=== PATIENT | female | born 1985 | race Caucasian/White ===

== ENCOUNTER → 2019-06-09 | Day surgery (SDC) | payer BC, MEDICARE ==
[~2019-06-09] MED LIST: ACETAMINOPHEN 325 MG TABLET PO PRN; ALBU2.5V8; ATROPINE 0.5 MG/5 ML DISP.SYRIN. IV PRN; BUPR300T92 PO; CLON0.5T4 PO; CYCL5TAB PO; FLUO10CA13 PO; IV RINGERS SOLUTION,LACTATED 1,000 ML IV SCH; LEVO100T5 PO; MIDAZOLAM HCL PF 2 MG/2 ML VIAL. IV PRN; ONDA4TAB12 PO; ONDANSETRON PF 4 MG/2 ML VIAL. IV PRN; OXCA150T3 PO; OXCA300T3 PO; PHENOL ORAL SPRAY 177ML BOTTLE. MM PRN; PRAZ2CAP2 PO; PREDISONE; PROPOFOL 40 ML IV ONE; diphenhydrAMINE 50 MG/ML VIAL IV PRN
[2019-06-09 08:47] VITALS: BP 125/75
--- NOTE | 2019-06-11 17:06 | PATHOLOGY ---
[facility] Accession Number: [id number] . 01 Material submitted: . PART A: small bowel - SMALL BOWEL BIOPSY PART B: stomach - GASTRIC BIOPSY PART C: colon - RANDOM COLON BIOPSY . 01 Clinical history: . GERD/IBS. . 02 Diagnosis: A. Small bowel biopsy: - No significant pathologic abnormalities. . B. Gastric biopsy: - Mild chronic gastritis with single poorly formed mucosal granuloma. . C. Colonic mucosa, random colon biopsy: - Small focus of active colitis with few granulomas of deep mucosa and submucosa. See comment. . (JPM:clemencia/glen; 06/10/2019) [facility] 06/11/2019 1436 Local . 02 Comment: Sections of the small bowel biopsy reveal segments of duodenal mucosa. Where best oriented, the mucosal villi show no sprue-like changes. . Sections of the gastric biopsy reveal segments of gastric body and antral/body transition mucosa. The gastric body mucosa shows congestion and mild superficial chronic inflammation with a single small poorly-formed granuloma within the mucosa. The antral/body transition mucosa shows congestion, mild edema, and very mild chronic inflammation. A properly-controlled immunoperoxidase stain for Helicobacter is negative for Helicobacter organisms. . Sections of the random colon biopsy reveal multiple segments of colonic mucosa, one of which has a hyperplastic mucosal-associated lymphoid aggregate, and two segments of submucosa. One of the segments of colonic mucosa shows a single focus of active colitis with an underlying granuloma. There are also a few small granulomas within the submucosa. The differential diagnosis of granulomatous colitis includes Crohn's disease, granulomatous enteric and disseminated infections, sarcoidosis, and drug reactions. A properly controlled AFB stain is negative for acid-fast bacilli. A properly controlled GMS stain for fungus is negative for yeast/fungi. Please correlate clinically. . Special stains performed: Immunoperoxidase stain for Helicobacter on B1 GMS for fungus and AFB stain on C1 . (JPM:mml/single ending machine operator; 06/10/2019) . 02 Electronically signed: . Blayne Segura MD, Pathologist NPI- [id number] . 01 Gross description: . A. Received in formalin labeled "Landa, Mitra, small bowel BX" is a 0.7 x 0.5 x 0.1 cm aggregate of caldera-brown soft tissue fragments. The specimen is submitted entirely in A1. . B. Received in formalin labeled "Landa, Mitra, gastric BX" is a 0.7 x 0.4 x 0.1 cm aggregate of caldera-brown soft tissue fragments. The specimen is submitted entirely in B1. . C. Received in formalin labeled "Landa, Mitra, random colon BX" is a 2.0 x 0.4 x 0.1 cm aggregate of caldera-brown soft tissue fragments. The specimen is submitted entirely in C1. [place] [place] [facility] 06/09/2019 1714 Local . 02 Pathologist provided ICD-10: K29.50, K52.9, K63.89 . 02 CPT . 173770, 974019, 684970, [id number], [id number], [id number] Specimen Comment: A courtesy copy of this report has been sent to [phone], [phone] Specimen Comment: [id number] Specimen Comment: Report sent to / DR SIEGEL Performed at: 01 [facility] [address], [place], [place] [id number] MD Ganga Cardenas MD Phone: [phone] Performed at: 02 [facility] [address] [place], [place] [id number] MD Blayne Segura MD Phone: [phone]
== END ==
LOC: SURG 07:33
PROVIDERS: ATTEND Emergency Medicine
DX: R14.0 Abdominal distension (gaseous) (principal); K29.50 Unspecified chronic gastritis without bleeding; K52.9 Noninfective gastroenteritis and colitis, unspecified; E89.0 Postprocedural hypothyroidism; F41.9 Anxiety disorder, unspecified; F32.9 Major depressive disorder, single episode, unspecified; Z90.49 Acquired absence of other specified parts of digestive tract
CPT/HCPCS: 45380; 88305; 88312; 88342; J2704; J3010; J7120; 43239